=== PATIENT | male | born 1945 | race Caucasian/White ===

== ENCOUNTER 2018-01-26 04:39 | Inpatient (IN) | payer MEDICARE, OTHER ==
[2018-01-23 12:59] LABS: BASOPHILS # (AUTO) 0.08 x10^3/uL (0-0.1); BASOPHILS % (AUTO) 1 % (0-1); EOSINOPHILS # (AUTO) 0.36 x10^3/uL (0-0.4); EOSINOPHILS % (AUTO) 3 % (1-7); LYMPHOCYTES # (AUTO) 3.64 x10^3/uL (1-3.4); LYMPHOCYTES % (AUTO) 29 % (22-44); MD NO; MEAN CORPUSCULAR HEMOGLOBIN 30.6 pg (27.5-34.5); MEAN CORPUSCULAR HGB CONC 33.5 g/dL (33.2-36.2); MEAN CORPUSCULAR VOLUME 91.4 fL (81-97); MEAN PLATELET VOLUME 8.9 fL (7.4-10.4); MONOCYTES # (AUTO) 1.35 x10^3/uL (0.2-0.8); MONOCYTES % (AUTO) 11 % (2-9); NEUTROPHILS % (AUTO) 56 % (42-75); PLATELET COUNT 164 x10^3/uL (130-400); RED BLOOD COUNT 4.35 x10^6/uL (4.38-5.82); RED CELL DISTRIBUTION WIDTH 14.5 % (9.4-14.8)
[2018-01-23 13:04] LABS: INTERNATIONAL NORMALIZED RATIO 0.96 (0.93-1.1)
[2018-01-23 13:05] LABS: ALANINE AMINOTRANSFERASE 28 U/L (12-78); ALBUMIN 3.5 g/dL (3.4-5.0); ANION GAP 8 mmol/L (5-15); CALCIUM 9.1 mg/dL (8.5-10.1); CHLORIDE 107 mmol/L (98-107); CREATININE 1.61 mg/dL (0.7-1.3)
[2018-01-23 13:07] LABS: ALKALINE PHOSPHATASE 60 U/L (45-117); TOTAL PROTEIN 7.7 g/dL (6.4-8.2)
[2018-01-23 13:29] LABS: HEMOGLOBIN A1C 8.5 % (4.2-6.3)
[2018-01-23 13:40] LABS: MICROSCOPIC AUTO
[~2018-01-26] VITALS: Ht 177.8 cm; Wt 110.2 kg
[~2018-01-26 04:39] MED LIST: ASCO10004 PO; ASPI-496 PO; CYAN25009 PO; FINA5TAB4 PO; FURO20TA3 PO; GLIP10TA13 PO; LOSA25TA5 PO; LUTE6CAP3 PO; METH1TAB21 PO; METO50TA82 PO; RIVA20TA PO; SIMV20TA3 PO; SITA100T PO; TAMS-11 PO
[2018-01-26] MEDS ORDERED: ALBUMIN HUMAN 5% 500 ML IV PRN (05:00)
[2018-01-26] MEDS ORDERED: METOPROLOL TARTRATE 25 MG TABLET PO ONE (05:00)
[2018-01-26 05:25] VITALS: BP_SYST 144; BP_SYST 156; BP_DIAS 84; BP_DIAS 97
[2018-01-26] MEDS ORDERED: CHLORHEXIDINE 15 ML BOTTLE MM SCH (05:30)
[2018-01-26] MEDS ORDERED: INSULIN LISPRO 100 UNITS/ML, PEN SQ-INSULIN SCH (05:30)
[2018-01-26] MEDS: MUPIROCIN OINT 2%, 22GM TP SCH ×2 (05:34→21:42)
[2018-01-26] MEDS: SODIUM CHLORIDE FLUSH 10ML SYR IVF SCH ×3 (05:35→21:42)
[2018-01-26 06:30] VITALS: BP 123/82
[2018-01-26] MEDS ORDERED: PAPAVERINE 30 MG/ML, 2ML ONE (07:22)
[2018-01-26] MEDS ORDERED: HEPARIN 1,000 UNITS/ML, 10ML ONE (07:22)
[2018-01-26] MEDS ORDERED: MIDAZOLAM 10MG/2 ML ONE (07:28)
[2018-01-26] MEDS ORDERED: FENTANYL PF 250 MCG/5ML ONE ×4 (07:29)
[2018-01-26] MEDS ORDERED: PHENYLEPHRINE 10 MG in SODIUM CHLORIDE 0.9% 249 ML IV PRN ×2 (07:30→12:53)
[2018-01-26] MEDS ORDERED: EPINEPHRINE 2 MG in SODIUM CHLORIDE 0.9% 248 ML IV SCH (07:30)
[2018-01-26] MEDS ORDERED: POTASSIUM CHLORIDE 80 MEQ, SODIUM BICARBONATE 8.4% 10 MEQ, MAGNESIUM SULFATE 0.5 GM, LI... IV PRN (07:30)
[2018-01-26] MEDS ORDERED: REGULAR INSULIN 62.5 UNITS in SODIUM CHLORIDE 0.9% 249.375 ML IV PRN (07:30)
[2018-01-26] MEDS ORDERED: DEXMEDETOMIDINE 200 MCG in SODIUM CHLORIDE 0.9% 48 ML IV SCH (07:30)
[2018-01-26] MEDS ORDERED: CEFUROXIME 1.5 GM in SODIUM CHLORIDE 0.9% 50 ML IVPB PRN (07:30)
[2018-01-26] MEDS ORDERED: MANNITOL PMX 20% 500 ML IVPB PRN (07:30)
[2018-01-26] MEDS ORDERED: VANCOMYCIN 1,700 MG in SODIUM CHLORIDE 0.9% 250 ML IV PRN (07:30)
[2018-01-26] MEDS ORDERED: ROCURONIUM 10MG/ML,5ML ONE (08:02)
[2018-01-26] MEDS ORDERED: PROTAMINE SULFATE 10 MG/ML, 25ML ONE (08:02)
[2018-01-26] MEDS ORDERED: PROPOFOL 10 MG/ML, 20ML ONE (08:02)
[2018-01-26] MEDS: DOCUSATE 100 MG CAPSULE PO SCH ×2 (09:00→21:00)
[2018-01-26] MEDS ORDERED: DEXMEDETOMIDINE 200 MCG in SODIUM CHLORIDE 0.9% 48 ML IV PRN (12:53)
[2018-01-26] MEDS ORDERED: NITROGLYCERIN/D5W PMX 240 ML IV PRN (12:53)
[2018-01-26] MEDS ORDERED: DOBUTAMINE 250 MG in SODIUM CHLORIDE 0.9% 230 ML IV PRN (12:53)
[2018-01-26] MEDS ORDERED: SODIUM CHLORIDE 0.9% 1,000 ML IV PRN (12:53)
[2018-01-26] MEDS ORDERED: DEXTROSE 4 GM TAB.CHEW PO PRN (13:00)
[2018-01-26] MEDS: KSCALE TO 4.5 IV SCH ×2 (13:00→19:00)
[2018-01-26] MEDS ORDERED: LACTATED RINGERS 1,000 ML IV PRN (13:00)
[2018-01-26] MEDS ORDERED: GLUCAGON 1 MG IM PRN (13:00)
[2018-01-26] MEDS ORDERED: BISACODYL 5 MG EC TABLET PO PRN (13:00)
[2018-01-26] MEDS ORDERED: FENTANYL PF 100 MCG/2ML IVPush PRN (13:00)
[2018-01-26] MEDS ORDERED: SODIUM BICARB 8.4%, 50ML SYRINGE IV PRN (13:00)
[2018-01-26] MEDS ORDERED: DEXTROSE 50%, 50ML SYRINGE IVPush PRN (13:00)
[2018-01-26] MEDS ORDERED: ONDANSETRON 2MG/ML, 2ML IVPush PRN (13:00)
[2018-01-26] MEDS ORDERED: ACETAMINOPHEN 650 MG SUPP PR PRN (13:00)
[2018-01-26] MEDS ORDERED: ACETAMINOPHEN 325 MG TABLET PO PRN (13:00)
[2018-01-26] MEDS ORDERED: EPINEPHRINE 2 MG in SODIUM CHLORIDE 0.9% 248 ML IV PRN ×2 (13:00→14:30)
[2018-01-26] MEDS ORDERED: INSULIN REGULAR 100 UNITS/ML, 3ML VIAL IVPush PRN (13:00)
[2018-01-26] MEDS ORDERED: PROCHLORPERAZINE 5 MG/ML, 2ML IVPush PRN (13:00)
[2018-01-26] MEDS ORDERED: BISACODYL 10 MG SUPP PR PRN (13:00)
[2018-01-26] MEDS: CHLORHEXIDINE 15 ML BOTTLE MM SCH (13:00)
[2018-01-26] MEDS ORDERED: LIDOCAINE 2% 100MG/5ML SYRINGE ONE (13:19)
[2018-01-26] MEDS ORDERED: HEPARIN 1,000 UNITS/ML, 30ML ONE (13:19)
[2018-01-26] MEDS ORDERED: ALBUMIN HUMAN 25% 50 ML ONE (13:19)
[2018-01-26] MEDS ORDERED: SODIUM BICARBONATE 1 MEQ/ML, 50ML VIAL ONE (13:20)
[2018-01-26] MEDS ORDERED: SODIUM BICARB 8.4%, 50ML SYRINGE ONE (13:20)
[2018-01-26 13:47] LABS: GLUCOSE BY BLOOD GAS ANALYZER 193 mg/dL (70-110); HEMOGLOBIN BY BLOOD GAS ANALYZ 11.2 g/dL (14.0-18.0)
[2018-01-26 13:56] LABS: INTERNATIONAL NORMALIZED RATIO 1.2 (0.93-1.1); PROTHROMBIN TIME 12.4 Seconds (9.6-11.5)
[2018-01-26] MEDS: INSULIN LISPRO 100 UNITS/ML, PEN SQ-INSULIN SCH ×2 (14:08→21:00)
[2018-01-26] MEDS: MAGNESIUM SULFATE 1 GM in SODIUM CHLORIDE 0.9% 50 ML IVPB SCH (17:38)
[2018-01-26] MEDS ORDERED: CALCIUM CHLORIDE 13.6 MEQ in SODIUM CHLORIDE 0.9% 100 ML IV ONE (18:00)
[2018-01-26] MEDS: SODIUM CHLORIDE 0.9% 500 ML IV SCH ×3 (18:00→22:00)
[2018-01-26] MEDS ORDERED: MIDAZOLAM 1 MG/ML, 2ML ONE (18:03)
[2018-01-26] MEDS: MIDAZOLAM 1 MG/ML, 5ML IVPush PRN (18:20)
[2018-01-26] MEDS: EPINEPHRINE IV PRN (18:31)
[2018-01-26] MEDS: SODIUM CHLORIDE 0.9% IV PRN (18:31)
[2018-01-26] MEDS: DEXMEDETOMIDINE 400 MCG in SODIUM CHLORIDE 0.9% 46 ML IV PRN (19:33)
[2018-01-26] MEDS: MUPIROCIN OINT 2%, 22GM NAS SCH (21:00)
[2018-01-26] MEDS: REGULAR INSULIN 62.5 UNITS in SODIUM CHLORIDE 0.9% 249.375 ML IV PRN (21:46)
[2018-01-26] MEDS ORDERED: AMIODARONE 150 MG in DEXTROSE 5% 100 ML IV ONE (23:00)
[2018-01-26] MEDS ORDERED: FILTER 0.22 MICRON IV ONE (23:00)
[2018-01-27] MEDS: KSCALE TO 4.5 IV SCH ×2 (01:00→09:57)
[2018-01-27] MEDS: CHLORHEXIDINE 15 ML BOTTLE MM SCH ×2 (01:00→12:54)
[2018-01-27] MEDS: VANCOMYCIN 1,600 MG in SODIUM CHLORIDE 0.9% 250 ML IVPB SCH ×2 (01:53→20:05)
[2018-01-27] MEDS: SODIUM CHLORIDE 0.9% 500 ML IV SCH ×5 (02:00→08:00)
[2018-01-27] MEDS: HYDROcodone/APAP 5/325 TABLET PO PRN (02:05)
[2018-01-27] MEDS: OXYcodone IR 5MG TABLET PO PRN ×6 (05:11→22:16)
[2018-01-27 05:33] LABS: MEAN CORPUSCULAR HEMOGLOBIN 30.6 pg (27.5-34.5); MEAN CORPUSCULAR HGB CONC 33.4 g/dL (33.2-36.2); MEAN CORPUSCULAR VOLUME 91.8 fL (81-97); MEAN PLATELET VOLUME 8.7 fL (7.4-10.4); PLATELET COUNT 174 x10^3/uL (130-400); RED BLOOD COUNT 3.36 x10^6/uL (4.38-5.82); RED CELL DISTRIBUTION WIDTH 14.4 % (9.4-14.8)
[2018-01-27 05:48] LABS: ALBUMIN 2.9 g/dL (3.4-5.0); ANION GAP 12 mmol/L (5-15); CALCIUM 8.7 mg/dL (8.5-10.1); CHLORIDE 116 mmol/L (98-107); CREATININE 1.67 mg/dL (0.7-1.3)
[2018-01-27 06:00] LABS: MD YES
[2018-01-27 06:01] LABS: <PLATELET ESTIMATE> ADEQUATE; <PLT MORPHOLOGY> NORMAL PLT MORPH; <RBC MORPHOLOGY> NORMAL; BAND#(MANUAL) 2.39 x10^3/uL; BANDS%(MANUAL) 12 % (0-7); LYMPHS% (MANUAL) 3 % (22-44); MONOS#(MANUAL) 1.99 x10^3/uL (0.3-2.7); MONOS% (MANUAL) 10 % (2-9); SEG#(MANUAL) 14.93 x10^3/uL (1.8-6.8); SEGS% (MANUAL) 75 % (42-75)
[2018-01-27] MEDS: INSULIN LISPRO 100 UNITS/ML, PEN SQ-INSULIN SCH ×4 (07:00→20:55)
[2018-01-27] MEDS: morphine SULFATE 10 MG/ML, 1ML IVPush PRN ×4 (07:44→20:06)
[2018-01-27] MEDS: EPINEPHRINE IV PRN (07:52)
[2018-01-27] MEDS: SODIUM CHLORIDE 0.9% IV PRN (07:52)
[2018-01-27] MEDS: REGULAR INSULIN 62.5 UNITS in SODIUM CHLORIDE 0.9% 249.375 ML IV PRN ×2 (07:53→20:36)
[2018-01-27] MEDS ORDERED: FUROSEMIDE 40 MG/4 ML IV SCH (09:00)
[2018-01-27] MEDS: SODIUM CHLORIDE FLUSH 10ML SYR IVF SCH ×4 (09:00→21:18)
[2018-01-27] MEDS: MUPIROCIN OINT 2%, 22GM NAS SCH ×2 (09:00→20:55)
[2018-01-27] MEDS: DOCUSATE 100 MG CAPSULE PO SCH ×2 (09:00→20:56)
[2018-01-27] MEDS ORDERED: MIDAZOLAM 1 MG/ML, 2ML ONE ×4 (09:05→23:42)
[2018-01-27] MEDS: MIDAZOLAM 1 MG/ML, 5ML IVPush PRN ×4 (09:08→23:43)
[2018-01-27] MEDS: ASPIRIN 81 MG TABLET EC PO SCH (09:24)
[2018-01-27] MEDS: METOPROLOL TARTRATE 25 MG TABLET PO/NG SCH ×2 (09:24→21:17)
[2018-01-27] MEDS: MUPIROCIN OINT 2%, 22GM TP SCH ×2 (09:24→21:17)
[2018-01-27 09:32] LABS: MICROSCOPIC AUTO
[2018-01-27 09:33] LABS: CULTURE INDICATED? YES
[2018-01-27] MEDS: DEXMEDETOMIDINE 400 MCG in SODIUM CHLORIDE 0.9% 46 ML IV PRN ×2 (10:05→15:47)
[2018-01-27] MEDS: MAGNESIUM SULFATE 1 GM in SODIUM CHLORIDE 0.9% 50 ML IVPB SCH (12:53)
[2018-01-27] MEDS: PIPERACILLIN/TAZO/PMX 3.375GM 50 ML IV SCH ×2 (15:46→22:16)
[2018-01-27] MEDS: ALBUMIN HUMAN 25% 100 ML IV SCH (21:18)
[2018-01-27] MEDS: FUROSEMIDE 40 MG/4 ML IV SCH (23:21)
[2018-01-28] MEDS: CHLORHEXIDINE 15 ML BOTTLE MM SCH ×2 (01:00→12:22)
[2018-01-28] MEDS: OXYcodone IR 5MG TABLET PO PRN ×3 (01:34→22:51)
[2018-01-28] MEDS: DEXMEDETOMIDINE 400 MCG in SODIUM CHLORIDE 0.9% 46 ML IV PRN (01:41)
[2018-01-28] MEDS: PIPERACILLIN/TAZO/PMX 3.375GM 50 ML IV SCH ×4 (03:30→21:57)
[2018-01-28] MEDS ORDERED: AMIODARONE 150 MG in DEXTROSE 5% 100 ML IV ONE (03:30)
[2018-01-28] MEDS ORDERED: AMIODARONE 900 MG in DEXTROSE 5% 482 ML IV PRN (03:30)
[2018-01-28] MEDS ORDERED: FILTER 0.22 MICRON IV PRN (03:30)
[2018-01-28 04:46] LABS: MEAN CORPUSCULAR HEMOGLOBIN 31.4 pg (27.5-34.5); MEAN CORPUSCULAR HGB CONC 33.7 g/dL (33.2-36.2); MEAN CORPUSCULAR VOLUME 93.4 fL (81-97); MEAN PLATELET VOLUME 8.4 fL (7.4-10.4); PLATELET COUNT 120 x10^3/uL (130-400); RED BLOOD COUNT 3.05 x10^6/uL (4.38-5.82); RED CELL DISTRIBUTION WIDTH 14.8 % (9.4-14.8)
[2018-01-28 04:56] LABS: ANION GAP 7 mmol/L (5-15); CALCIUM 8.8 mg/dL (8.5-10.1); CHLORIDE 115 mmol/L (98-107)
[2018-01-28 04:57] LABS: CREATININE 1.65 mg/dL (0.7-1.3)
[2018-01-28 05:40] LABS: BASOPHILS # (AUTO) 0.17 x10^3/uL (0-0.1); BASOPHILS % (AUTO) 1 % (0-1); EOSINOPHILS # (AUTO) 0.02 x10^3/uL (0-0.4); EOSINOPHILS % (AUTO) 0 % (1-7); LYMPHOCYTES # (AUTO) 1.06 x10^3/uL (1-3.4); LYMPHOCYTES % (AUTO) 6 % (22-44); MD SCAN; MONOCYTES # (AUTO) 1.57 x10^3/uL (0.2-0.8); MONOCYTES % (AUTO) 9 % (2-9); NEUTROPHILS # (AUTO) 13.89 x10^3/uL (1.8-6.8); NEUTROPHILS % (AUTO) 83 % (42-75)
[2018-01-28] MEDS: INSULIN LISPRO 100 UNITS/ML, PEN SQ-INSULIN SCH ×4 (07:00→23:49)
[2018-01-28] MEDS: ALBUMIN HUMAN 25% 100 ML IV SCH ×2 (08:31→21:00)
[2018-01-28] MEDS: ENOXAPARIN 40 MG/0.4 ML SQ SCH (09:00)
[2018-01-28] MEDS ORDERED: FAMOTIDINE 20 MG/2 ML IVPush SCH (09:00)
[2018-01-28] MEDS: MUPIROCIN OINT 2%, 22GM NAS SCH ×2 (09:00→21:00)
[2018-01-28] MEDS: SODIUM CHLORIDE FLUSH 10ML SYR IVF SCH ×4 (09:00→21:09)
[2018-01-28] MEDS: FAMOTIDINE 20 MG/2 ML IVPush SCH (09:00)
[2018-01-28] MEDS: FUROSEMIDE 40 MG/4 ML IV SCH ×2 (09:54→22:50)
[2018-01-28] MEDS: POTASSIUM CHLORIDE 10 MEQ TABLET.ER PO SCH (09:55)
[2018-01-28] MEDS: DOCUSATE 100 MG CAPSULE PO SCH ×2 (09:55→21:08)
[2018-01-28] MEDS: ASPIRIN 81 MG TABLET EC PO SCH (09:55)
[2018-01-28] MEDS: METOPROLOL TARTRATE 25 MG TABLET PO/NG SCH ×2 (09:55→21:07)
[2018-01-28] MEDS: MUPIROCIN OINT 2%, 22GM TP SCH ×2 (09:56→21:09)
[2018-01-28] MEDS: HYDROcodone/APAP 5/325 TABLET PO PRN ×2 (10:11→18:48)
[2018-01-28] MEDS: REGULAR INSULIN 62.5 UNITS in SODIUM CHLORIDE 0.9% 249.375 ML IV PRN (10:53)
[2018-01-28] MEDS: MAGNESIUM SULFATE 1 GM in SODIUM CHLORIDE 0.9% 50 ML IVPB SCH (13:26)
[2018-01-29] MEDS: CHLORHEXIDINE 15 ML BOTTLE MM SCH ×2 (01:28→12:52)
[2018-01-29] MEDS: INSULIN LISPRO 100 UNITS/ML, PEN SQ-INSULIN SCH ×5 (03:28→20:39)
[2018-01-29] MEDS: PIPERACILLIN/TAZO/PMX 3.375GM 50 ML IV SCH ×4 (03:29→22:00)
[2018-01-29] MEDS: OXYcodone IR 5MG TABLET PO PRN (05:01)
[2018-01-29 06:32] LABS: ANION GAP 8 mmol/L (5-15); CALCIUM 8.9 mg/dL (8.5-10.1); CHLORIDE 109 mmol/L (98-107); CREATININE 1.71 mg/dL (0.7-1.3)
[2018-01-29] MEDS: ALBUMIN HUMAN 25% 100 ML IV SCH ×2 (07:32→20:37)
[2018-01-29] MEDS: MUPIROCIN OINT 2%, 22GM NAS SCH ×2 (09:00→20:37)
[2018-01-29] MEDS: ENOXAPARIN 40 MG/0.4 ML SQ SCH (09:00)
[2018-01-29] MEDS: SODIUM CHLORIDE FLUSH 10ML SYR IVF SCH ×4 (09:00→20:37)
[2018-01-29] MEDS: DOCUSATE 100 MG CAPSULE PO SCH ×2 (09:49→20:38)
[2018-01-29] MEDS: POTASSIUM CHLORIDE 10 MEQ TABLET.ER PO SCH (09:49)
[2018-01-29] MEDS: FUROSEMIDE 40 MG/4 ML IV SCH ×2 (09:50→20:37)
[2018-01-29] MEDS: FAMOTIDINE 20 MG/2 ML IVPush SCH (09:50)
[2018-01-29] MEDS: ASPIRIN 81 MG TABLET EC PO SCH (09:50)
[2018-01-29] MEDS: METOPROLOL TARTRATE 25 MG TABLET PO/NG SCH ×2 (09:50→20:38)
[2018-01-29] MEDS: MUPIROCIN OINT 2%, 22GM TP SCH ×2 (09:51→20:37)
[2018-01-29] MEDS: HYDROcodone/APAP 5/325 TABLET PO PRN ×2 (09:52→17:49)
[2018-01-30] MEDS: HYDROcodone/APAP 5/325 TABLET PO PRN ×4 (00:07→14:10)
[2018-01-30] MEDS: CHLORHEXIDINE 15 ML BOTTLE MM SCH ×2 (00:11→13:58)
[2018-01-30] MEDS: PIPERACILLIN/TAZO/PMX 3.375GM 50 ML IV SCH ×3 (04:16→22:32)
[2018-01-30 05:55] LABS: CHLORIDE 105 mmol/L (98-107)
[2018-01-30 06:06] LABS: ANION GAP 11 mmol/L (5-15); CALCIUM 9.5 mg/dL (8.5-10.1); CREATININE 1.67 mg/dL (0.7-1.3)
[2018-01-30] MEDS: INSULIN LISPRO 100 UNITS/ML, PEN SQ-INSULIN SCH ×4 (07:00→22:43)
[2018-01-30] MEDS ORDERED: MAGNESIUM HYDROXIDE 8%, 30ML UDC PO PRN (08:30)
[2018-01-30] MEDS: DOCUSATE 100 MG CAPSULE PO SCH ×2 (08:57→22:36)
[2018-01-30] MEDS: TAMSULOSIN 0.4 MG CAP.ER.24H PO SCH (08:57)
[2018-01-30] MEDS: FUROSEMIDE 40 MG/4 ML IV SCH ×2 (08:57→22:36)
[2018-01-30] MEDS: FAMOTIDINE 20 MG/2 ML IVPush SCH (08:57)
[2018-01-30] MEDS: ASPIRIN 81 MG TABLET EC PO SCH (08:57)
[2018-01-30] MEDS: FINASTERIDE 5 MG TABLET PO SCH (08:58)
[2018-01-30] MEDS: POTASSIUM CHLORIDE 10 MEQ TABLET.ER PO SCH (08:58)
[2018-01-30] MEDS: METOPROLOL TARTRATE 25 MG TABLET PO/NG SCH ×2 (08:59→22:36)
[2018-01-30] MEDS: ENOXAPARIN 40 MG/0.4 ML SQ SCH (09:05)
[2018-01-30] MEDS: ALBUMIN HUMAN 25% 100 ML IV SCH ×2 (10:59→23:05)
[2018-01-30 11:16] VITALS: BP 145/77
[2018-01-30 13:28] LABS: INTERNATIONAL NORMALIZED RATIO 1.03 (0.93-1.1); PROTHROMBIN TIME 10.7 Seconds (9.6-11.5)
[2018-01-30] MEDS: MUPIROCIN OINT 2%, 22GM NAS SCH ×2 (13:41→22:37)
[2018-01-30 14:07] VITALS: BP 145/77
[2018-01-30 14:13] VITALS: BP 127/75
[2018-01-30] MEDS: OXYcodone IR 5MG TABLET PO PRN ×2 (17:35→22:44)
[2018-01-30] MEDS ORDERED: WARFARIN 5 MG TABLET PO-COUM ONE (18:00)
[2018-01-30] MEDS ORDERED: LIDOCAINE 1%, 20ML ONE (18:33)
[2018-01-30 19:32] VITALS: BP 119/70
[2018-01-30] MEDS: SODIUM CHLORIDE FLUSH 10ML SYR IVF SCH (22:37)
[2018-01-31 01:57] VITALS: BP 109/73
[2018-01-31] MEDS: CHLORHEXIDINE 15 ML BOTTLE MM SCH (03:33)
[2018-01-31] MEDS: OXYcodone IR 5MG TABLET PO PRN ×4 (03:36→17:36)
[2018-01-31] MEDS: PIPERACILLIN/TAZO/PMX 3.375GM 50 ML IV SCH ×4 (04:33→23:05)
[2018-01-31 05:09] LABS: MEAN CORPUSCULAR HEMOGLOBIN 31.1 pg (27.5-34.5); MEAN CORPUSCULAR VOLUME 91.7 fL (81-97); MEAN PLATELET VOLUME 8.2 fL (7.4-10.4); PLATELET COUNT 157 x10^3/uL (130-400); RED BLOOD COUNT 3.12 x10^6/uL (4.38-5.82)
[2018-01-31 05:13] LABS: INTERNATIONAL NORMALIZED RATIO 1.04 (0.93-1.1); PROTHROMBIN TIME 10.8 Seconds (9.6-11.5)
[2018-01-31 05:17] LABS: ANION GAP 10 mmol/L (5-15); CALCIUM 9.1 mg/dL (8.5-10.1); CHLORIDE 103 mmol/L (98-107); CREATININE 1.68 mg/dL (0.7-1.3)
[2018-01-31 05:33] LABS: MD YES
[2018-01-31 05:35] LABS: <PLATELET ESTIMATE> ADEQUATE; <PLT MORPHOLOGY> NORMAL PLT MORPH; <RBC MORPHOLOGY> NORMAL; BAND#(MANUAL) 0.38 x10^3/uL; BANDS%(MANUAL) 3 % (0-7); EOS#(MANUAL) 0.38 x10^3/uL (0.0-0.4); EOS% (MANUAL) 3 % (1-7); LYMPHS% (MANUAL) 24 % (22-44); MONOS#(MANUAL) 0.63 x10^3/uL (0.3-2.7); MONOS% (MANUAL) 5 % (2-9); SEG#(MANUAL) 8.13 x10^3/uL (1.8-6.8); SEGS% (MANUAL) 65 % (42-75)
[2018-01-31 07:14] VITALS: BP 128/58
[2018-01-31] MEDS: FINASTERIDE 5 MG TABLET PO SCH (09:00)
[2018-01-31] MEDS: MUPIROCIN OINT 2%, 22GM NAS SCH (09:59)
[2018-01-31] MEDS: DOCUSATE 100 MG CAPSULE PO SCH ×2 (10:00→20:44)
[2018-01-31] MEDS: INSULIN LISPRO 100 UNITS/ML, PEN SQ-INSULIN SCH ×4 (10:00→20:55)
[2018-01-31] MEDS: POTASSIUM CHLORIDE 10 MEQ TABLET.ER PO SCH (10:00)
[2018-01-31] MEDS: TAMSULOSIN 0.4 MG CAP.ER.24H PO SCH (10:01)
[2018-01-31] MEDS: METOPROLOL TARTRATE 25 MG TABLET PO/NG SCH ×2 (10:02→20:54)
[2018-01-31] MEDS: FUROSEMIDE 40 MG/4 ML IV SCH ×2 (10:03→20:44)
[2018-01-31] MEDS: FAMOTIDINE 20 MG/2 ML IVPush SCH (10:04)
[2018-01-31] MEDS: ENOXAPARIN 40 MG/0.4 ML SQ SCH (10:05)
[2018-01-31] MEDS: ASPIRIN 81 MG TABLET EC PO SCH (10:05)
[2018-01-31] MEDS: SODIUM CHLORIDE FLUSH 10ML SYR IVF SCH ×2 (10:07→20:44)
[2018-01-31 12:24] VITALS: BP 112/72
[2018-01-31] MEDS: ALBUMIN HUMAN 25% 100 ML IV SCH ×2 (13:04→23:13)
[2018-01-31] MEDS ORDERED: WARFARIN 5 MG TABLET PO-COUM SCH (18:00)
[2018-01-31 19:35] VITALS: BP 134/57
[2018-01-31] MEDS: HYDROcodone/APAP 5/325 TABLET PO PRN (23:05)
[2018-02-01 03:22] VITALS: BP 114/71
[2018-02-01] MEDS: PIPERACILLIN/TAZO/PMX 3.375GM 50 ML IV SCH ×4 (04:48→23:22)
[2018-02-01] MEDS: HYDROcodone/APAP 5/325 TABLET PO PRN ×2 (05:42→17:54)
[2018-02-01 06:52] VITALS: BP 112/72
[2018-02-01 07:13] LABS: INTERNATIONAL NORMALIZED RATIO 1.08 (0.93-1.1); PROTHROMBIN TIME 11.2 Seconds (9.6-11.5)
[2018-02-01 07:15] LABS: ANION GAP 12 mmol/L (5-15); CALCIUM 9.3 mg/dL (8.5-10.1); CHLORIDE 101 mmol/L (98-107)
[2018-02-01] MEDS: FINASTERIDE 5 MG TABLET PO SCH (09:00)
[2018-02-01] MEDS: DOCUSATE 100 MG CAPSULE PO SCH ×2 (09:24→20:05)
[2018-02-01] MEDS: ASPIRIN 81 MG TABLET EC PO SCH (09:24)
[2018-02-01] MEDS: METOPROLOL TARTRATE 25 MG TABLET PO/NG SCH ×2 (09:25→20:05)
[2018-02-01] MEDS: FAMOTIDINE 20 MG TABLET PO SCH (09:25)
[2018-02-01] MEDS: TAMSULOSIN 0.4 MG CAP.ER.24H PO SCH (09:25)
[2018-02-01] MEDS: POTASSIUM CHLORIDE 10 MEQ TABLET.ER PO SCH (09:25)
[2018-02-01] MEDS: ENOXAPARIN 40 MG/0.4 ML SQ SCH (09:25)
[2018-02-01] MEDS: INSULIN LISPRO 100 UNITS/ML, PEN SQ-INSULIN SCH ×4 (09:25→20:04)
[2018-02-01] MEDS: FUROSEMIDE 40 MG/4 ML IV SCH (09:26)
[2018-02-01] MEDS: SODIUM CHLORIDE FLUSH 10ML SYR IVF SCH ×2 (09:26→20:04)
[2018-02-01] MEDS: ALBUMIN HUMAN 25% 100 ML IV SCH (11:26)
[2018-02-01] MEDS: OXYcodone IR 5MG TABLET PO PRN (12:46)
[2018-02-01 13:16] VITALS: BP 124/74
[2018-02-01] MEDS ORDERED: WARFARIN 7.5 MG TABLET PO-COUM SCH (18:00)
[2018-02-01 18:53] VITALS: BP 132/84
[2018-02-02 01:46] VITALS: BP 118/70
[2018-02-02] MEDS: OXYcodone IR 5MG TABLET PO PRN ×3 (03:30→21:20)
[2018-02-02 05:14] LABS: BASOPHILS # (AUTO) 0.12 x10^3/uL (0-0.1); BASOPHILS % (AUTO) 1 % (0-1); EOSINOPHILS # (AUTO) 0.43 x10^3/uL (0-0.4); EOSINOPHILS % (AUTO) 4 % (1-7); LYMPHOCYTES # (AUTO) 2.26 x10^3/uL (1-3.4); LYMPHOCYTES % (AUTO) 20 % (22-44); MD NO; MEAN CORPUSCULAR HGB CONC 33.4 g/dL (33.2-36.2); MEAN CORPUSCULAR VOLUME 92.7 fL (81-97); MEAN PLATELET VOLUME 8.3 fL (7.4-10.4); MONOCYTES # (AUTO) 1.28 x10^3/uL (0.2-0.8); MONOCYTES % (AUTO) 12 % (2-9); NEUTROPHILS # (AUTO) 7.12 x10^3/uL (1.8-6.8); NEUTROPHILS % (AUTO) 64 % (42-75); PLATELET COUNT 167 x10^3/uL (130-400); RED BLOOD COUNT 3.03 x10^6/uL (4.38-5.82)
[2018-02-02 05:17] LABS: INTERNATIONAL NORMALIZED RATIO 1.23 (0.93-1.1); PROTHROMBIN TIME 12.7 Seconds (9.6-11.5)
[2018-02-02] MEDS: PIPERACILLIN/TAZO/PMX 3.375GM 50 ML IV SCH ×4 (05:18→23:02)
[2018-02-02 05:20] LABS: CALCIUM 9.2 mg/dL (8.5-10.1); CHLORIDE 101 mmol/L (98-107)
[2018-02-02 05:24] LABS: ANION GAP 9 mmol/L (5-15); CREATININE 1.85 mg/dL (0.7-1.3)
[2018-02-02 06:57] VITALS: BP 104/66
[2018-02-02] MEDS ORDERED: POTASSIUM CHLORIDE 20 MEQ TAB.ER.PRT PO ONE (08:30)
[2018-02-02] MEDS ORDERED: ALBUMIN HUMAN 25% 100 ML IV SCH (09:00)
[2018-02-02] MEDS: INSULIN LISPRO 100 UNITS/ML, PEN SQ-INSULIN SCH ×4 (09:06→19:57)
[2018-02-02] MEDS: ENOXAPARIN 40 MG/0.4 ML SQ SCH (09:06)
[2018-02-02] MEDS: ASPIRIN 81 MG TABLET EC PO SCH (09:07)
[2018-02-02] MEDS: FAMOTIDINE 20 MG TABLET PO SCH (09:07)
[2018-02-02] MEDS: FUROSEMIDE 40 MG/4 ML IV SCH (09:07)
[2018-02-02] MEDS: TAMSULOSIN 0.4 MG CAP.ER.24H PO SCH (09:07)
[2018-02-02] MEDS: FINASTERIDE 5 MG TABLET PO SCH (09:07)
[2018-02-02] MEDS: DOCUSATE 100 MG CAPSULE PO SCH ×2 (09:07→19:57)
[2018-02-02] MEDS: METOPROLOL TARTRATE 25 MG TABLET PO/NG SCH ×2 (09:07→19:57)
[2018-02-02] MEDS: SODIUM CHLORIDE FLUSH 10ML SYR IVF SCH ×2 (09:08→19:51)
[2018-02-02] MEDS: POTASSIUM CHLORIDE 10 MEQ TABLET.ER PO SCH (10:47)
[2018-02-02 14:31] VITALS: BP 122/72
[2018-02-02] MEDS ORDERED: WARFARIN 10 MG TABLET PO-COUM ONE (18:00)
[2018-02-02 19:21] VITALS: BP 136/86
[2018-02-02 19:47] VITALS: BP 123/76
[2018-02-03 00:42] VITALS: BP 118/74
[2018-02-03] MEDS: PIPERACILLIN/TAZO/PMX 3.375GM 50 ML IV SCH ×3 (04:41→16:39)
[2018-02-03 05:05] LABS: BASOPHILS # (AUTO) 0.05 x10^3/uL (0-0.1); BASOPHILS % (AUTO) 0 % (0-1); EOSINOPHILS # (AUTO) 0.47 x10^3/uL (0-0.4); EOSINOPHILS % (AUTO) 4 % (1-7); LYMPHOCYTES # (AUTO) 2.72 x10^3/uL (1-3.4); LYMPHOCYTES % (AUTO) 23 % (22-44); MD NO; MEAN CORPUSCULAR HEMOGLOBIN 30.6 pg (27.5-34.5); MEAN CORPUSCULAR HGB CONC 33.1 g/dL (33.2-36.2); MEAN CORPUSCULAR VOLUME 92.4 fL (81-97); MEAN PLATELET VOLUME 7.9 fL (7.4-10.4); MONOCYTES # (AUTO) 1.37 x10^3/uL (0.2-0.8); MONOCYTES % (AUTO) 11 % (2-9); NEUTROPHILS # (AUTO) 7.45 x10^3/uL (1.8-6.8); NEUTROPHILS % (AUTO) 62 % (42-75); PLATELET COUNT 208 x10^3/uL (130-400); RED BLOOD COUNT 3.22 x10^6/uL (4.38-5.82); RED CELL DISTRIBUTION WIDTH 13.9 % (9.4-14.8)
[2018-02-03 05:08] LABS: INTERNATIONAL NORMALIZED RATIO 1.89 (0.93-1.1); PROTHROMBIN TIME 19.4 Seconds (9.6-11.5)
[2018-02-03 05:16] LABS: CHLORIDE 106 mmol/L (98-107)
[2018-02-03 05:23] LABS: ANION GAP 9 mmol/L (5-15); CALCIUM 9.7 mg/dL (8.5-10.1); CREATININE 1.73 mg/dL (0.7-1.3)
[2018-02-03 06:50] VITALS: BP 107/65
[2018-02-03] MEDS: INSULIN LISPRO 100 UNITS/ML, PEN SQ-INSULIN SCH ×4 (08:58→21:04)
[2018-02-03] MEDS: METOPROLOL TARTRATE 25 MG TABLET PO/NG SCH ×2 (08:58→20:33)
[2018-02-03] MEDS: TAMSULOSIN 0.4 MG CAP.ER.24H PO SCH (08:58)
[2018-02-03] MEDS: FUROSEMIDE 40 MG/4 ML IV SCH (08:58)
[2018-02-03] MEDS: FAMOTIDINE 20 MG TABLET PO SCH (08:59)
[2018-02-03] MEDS: DOCUSATE 100 MG CAPSULE PO SCH ×2 (08:59→20:33)
[2018-02-03] MEDS: ASPIRIN 81 MG TABLET EC PO SCH (08:59)
[2018-02-03] MEDS: SODIUM CHLORIDE FLUSH 10ML SYR IVF SCH ×2 (08:59→20:33)
[2018-02-03] MEDS: FINASTERIDE 5 MG TABLET PO SCH (08:59)
[2018-02-03] MEDS: ENOXAPARIN 40 MG/0.4 ML SQ SCH (08:59)
[2018-02-03] MEDS: POTASSIUM CHLORIDE 10 MEQ TABLET.ER PO SCH (08:59)
[2018-02-03] MEDS: OXYcodone IR 5MG TABLET PO PRN ×3 (12:02→21:04)
[2018-02-03 13:13] VITALS: BP 113/70
[2018-02-03 14:42] LABS: MICROSCOPIC NOT IND
[2018-02-03 14:48] LABS: CULTURE INDICATED? NO
[2018-02-03] MEDS ORDERED: WARFARIN 7.5 MG TABLET PO-COUM ONE ×3 (18:00→18:30)
[2018-02-03 18:55] VITALS: BP 149/76
[2018-02-03] MEDS: SIMVASTATIN 20 MG TABLET PO SCH (20:32)
[2018-02-04] VITALS (10 sets, daily range): BP systolic 114–150; BP diastolic 65–100
[2018-02-04] MEDS: OXYcodone IR 5MG TABLET PO PRN ×4 (00:19→18:36)
[2018-02-04] MEDS: PIPERACILLIN/TAZO/PMX 3.375GM 50 ML IV SCH ×5 (00:19→23:08)
[2018-02-04 05:03] LABS: BASOPHILS # (AUTO) 0.03 x10^3/uL (0-0.1); BASOPHILS % (AUTO) 0 % (0-1); EOSINOPHILS # (AUTO) 0.38 x10^3/uL (0-0.4); EOSINOPHILS % (AUTO) 4 % (1-7); LYMPHOCYTES # (AUTO) 2.16 x10^3/uL (1-3.4); LYMPHOCYTES % (AUTO) 20 % (22-44); MD NO; MEAN CORPUSCULAR HEMOGLOBIN 30.5 pg (27.5-34.5); MEAN CORPUSCULAR HGB CONC 33.1 g/dL (33.2-36.2); MEAN CORPUSCULAR VOLUME 92.1 fL (81-97); MONOCYTES # (AUTO) 1.23 x10^3/uL (0.2-0.8); MONOCYTES % (AUTO) 11 % (2-9); NEUTROPHILS # (AUTO) 6.96 x10^3/uL (1.8-6.8); NEUTROPHILS % (AUTO) 65 % (42-75); PLATELET COUNT 212 x10^3/uL (130-400); RED BLOOD COUNT 2.95 x10^6/uL (4.38-5.82); RED CELL DISTRIBUTION WIDTH 14.4 % (9.4-14.8)
[2018-02-04 05:04] LABS: INTERNATIONAL NORMALIZED RATIO 3.04 (0.93-1.1); PROTHROMBIN TIME 30.9 Seconds (9.6-11.5)
[2018-02-04 05:09] LABS: ANION GAP 7 mmol/L (5-15); CALCIUM 9.4 mg/dL (8.5-10.1); CHLORIDE 106 mmol/L (98-107); CREATININE 1.72 mg/dL (0.7-1.3)
[2018-02-04] MEDS: INSULIN LISPRO 100 UNITS/ML, PEN SQ-INSULIN SCH ×4 (07:31→20:56)
[2018-02-04] MEDS: TAMSULOSIN 0.4 MG CAP.ER.24H PO SCH (08:14)
[2018-02-04] MEDS: DOCUSATE 100 MG CAPSULE PO SCH ×2 (08:14→20:57)
[2018-02-04] MEDS: FUROSEMIDE 40 MG/4 ML IV SCH (08:14)
[2018-02-04] MEDS: POTASSIUM CHLORIDE 10 MEQ TABLET.ER PO SCH (08:15)
[2018-02-04] MEDS: ASPIRIN 81 MG TABLET EC PO SCH (08:15)
[2018-02-04] MEDS: FAMOTIDINE 20 MG TABLET PO SCH (08:16)
[2018-02-04] MEDS: SODIUM CHLORIDE FLUSH 10ML SYR IVF SCH ×2 (08:16→20:55)
[2018-02-04] MEDS: METOPROLOL TARTRATE 25 MG TABLET PO/NG SCH ×2 (08:16→20:57)
[2018-02-04] MEDS: ENOXAPARIN 40 MG/0.4 ML SQ SCH (08:16)
[2018-02-04] MEDS: FINASTERIDE 5 MG TABLET PO SCH (08:21)
[2018-02-04] MEDS ORDERED: WARFARIN 2.5 MG TABLET PO-COUM ONE (18:00)
[2018-02-04] MEDS: SIMVASTATIN 20 MG TABLET PO SCH (20:57)
[2018-02-05] VITALS (7 sets, daily range): BP systolic 118–147; BP diastolic 65–83
[2018-02-05] MEDS ORDERED: ALBUMIN HUMAN 5% 500 ML IV PRN (05:00)
[2018-02-05] MEDS: PIPERACILLIN/TAZO/PMX 3.375GM 50 ML IV SCH ×3 (05:24→17:31)
[2018-02-05 05:40] LABS: BASOPHILS # (AUTO) 0.03 x10^3/uL (0-0.1); BASOPHILS % (AUTO) 0 % (0-1); EOSINOPHILS # (AUTO) 0.44 x10^3/uL (0-0.4); EOSINOPHILS % (AUTO) 4 % (1-7); LYMPHOCYTES # (AUTO) 2.44 x10^3/uL (1-3.4); LYMPHOCYTES % (AUTO) 21 % (22-44); MD NO; MEAN CORPUSCULAR HEMOGLOBIN 30.4 pg (27.5-34.5); MEAN CORPUSCULAR HGB CONC 33.2 g/dL (33.2-36.2); MEAN CORPUSCULAR VOLUME 91.6 fL (81-97); MEAN PLATELET VOLUME 8.1 fL (7.4-10.4); MONOCYTES # (AUTO) 1.26 x10^3/uL (0.2-0.8); MONOCYTES % (AUTO) 11 % (2-9); NEUTROPHILS # (AUTO) 7.48 x10^3/uL (1.8-6.8); NEUTROPHILS % (AUTO) 64 % (42-75); PLATELET COUNT 239 x10^3/uL (130-400); RED BLOOD COUNT 3.09 x10^6/uL (4.38-5.82); RED CELL DISTRIBUTION WIDTH 14.2 % (9.4-14.8)
[2018-02-05 05:41] LABS: INTERNATIONAL NORMALIZED RATIO 2.6 (0.93-1.1); PROTHROMBIN TIME 26.5 Seconds (9.6-11.5)
[2018-02-05 05:43] LABS: CHLORIDE 106 mmol/L (98-107)
[2018-02-05 05:48] LABS: ANION GAP 8 mmol/L (5-15); CALCIUM 9.4 mg/dL (8.5-10.1)
[2018-02-05] MEDS: INSULIN LISPRO 100 UNITS/ML, PEN SQ-INSULIN SCH ×4 (07:00→21:03)
[2018-02-05] MEDS: DOCUSATE 100 MG CAPSULE PO SCH ×2 (07:27→20:56)
[2018-02-05] MEDS: ASPIRIN 81 MG TABLET EC PO SCH ×2 (07:27→09:02)
[2018-02-05] MEDS: TAMSULOSIN 0.4 MG CAP.ER.24H PO SCH ×2 (07:27→09:02)
[2018-02-05] MEDS: FUROSEMIDE 40 MG/4 ML IV SCH (07:27)
[2018-02-05] MEDS: SODIUM CHLORIDE FLUSH 10ML SYR IVF SCH ×2 (07:27→20:55)
[2018-02-05] MEDS: POTASSIUM CHLORIDE 10 MEQ TABLET.ER PO SCH (07:28)
[2018-02-05] MEDS: METOPROLOL TARTRATE 25 MG TABLET PO/NG SCH ×3 (07:28→20:57)
[2018-02-05] MEDS: FAMOTIDINE 20 MG TABLET PO SCH ×2 (07:28→09:02)
[2018-02-05] MEDS: FINASTERIDE 5 MG TABLET PO SCH ×2 (07:28→09:02)
[2018-02-05] MEDS: ENOXAPARIN 40 MG/0.4 ML SQ SCH ×2 (07:28→09:02)
[2018-02-05] MEDS ORDERED: DEXMEDETOMIDINE 200 MCG in SODIUM CHLORIDE 0.9% 48 ML IV SCH (07:30)
[2018-02-05] MEDS ORDERED: PHENYLEPHRINE 10 MG in SODIUM CHLORIDE 0.9% 249 ML IV PRN (07:30)
[2018-02-05] MEDS ORDERED: EPINEPHRINE 2 MG in SODIUM CHLORIDE 0.9% 248 ML IV SCH (07:30)
[2018-02-05] MEDS ORDERED: REGULAR INSULIN 62.5 UNITS in SODIUM CHLORIDE 0.9% 249.375 ML IV PRN (07:30)
[2018-02-05] MEDS ORDERED: MANNITOL PMX 20% 500 ML IVPB PRN (07:30)
[2018-02-05] MEDS ORDERED: POTASSIUM CHLORIDE 80 MEQ, SODIUM BICARBONATE 8.4% 10 MEQ, MAGNESIUM SULFATE 0.5 GM, LI... IV PRN (07:30)
[2018-02-05] MEDS ORDERED: FENTANYL PF 250 MCG/5ML ONE (07:54)
[2018-02-05] MEDS ORDERED: VANCOMYCIN 1,700 MG in SODIUM CHLORIDE 0.9% 250 ML IVPB SCH (08:00)
[2018-02-05] MEDS: HYDROcodone/APAP 5/325 TABLET PO PRN (09:02)
[2018-02-05] MEDS: OXYcodone IR 5MG TABLET PO PRN ×2 (11:27→17:31)
[2018-02-05] MEDS ORDERED: WARFARIN 5 MG TABLET PO-COUM ONE (18:00)
[2018-02-05] MEDS: SIMVASTATIN 20 MG TABLET PO SCH (20:57)
[2018-02-06] MEDS: PIPERACILLIN/TAZO/PMX 3.375GM 50 ML IV SCH ×4 (00:25→18:04)
[2018-02-06 00:46] VITALS: BP 134/72
[2018-02-06] MEDS: OXYcodone IR 5MG TABLET PO PRN ×2 (05:12→20:34)
[2018-02-06 05:14] LABS: INTERNATIONAL NORMALIZED RATIO 2.14 (0.93-1.1); PROTHROMBIN TIME 21.9 Seconds (9.6-11.5)
[2018-02-06 05:20] LABS: ANION GAP 8 mmol/L (5-15); CALCIUM 9.4 mg/dL (8.5-10.1); CHLORIDE 107 mmol/L (98-107); CREATININE 1.96 mg/dL (0.7-1.3)
[2018-02-06 08:18] VITALS: BP 115/89
[2018-02-06] MEDS: FINASTERIDE 5 MG TABLET PO SCH (09:04)
[2018-02-06] MEDS: TAMSULOSIN 0.4 MG CAP.ER.24H PO SCH (09:04)
[2018-02-06] MEDS: ASPIRIN 81 MG TABLET EC PO SCH (09:04)
[2018-02-06] MEDS: SITAGLIPTIN 50MG TABLET PO SCH (09:04)
[2018-02-06] MEDS: INSULIN LISPRO 100 UNITS/ML, PEN SQ-INSULIN SCH ×4 (09:04→20:35)
[2018-02-06] MEDS: METOPROLOL TARTRATE 25 MG TABLET PO/NG SCH ×2 (09:05→20:34)
[2018-02-06] MEDS: ENOXAPARIN 40 MG/0.4 ML SQ SCH (09:05)
[2018-02-06] MEDS: FAMOTIDINE 20 MG TABLET PO SCH (09:10)
[2018-02-06] MEDS: SODIUM CHLORIDE FLUSH 10ML SYR IVF SCH ×2 (09:10→20:41)
[2018-02-06 09:16] LABS: BASOPHILS # (AUTO) 0.09 x10^3/uL (0-0.1); BASOPHILS % (AUTO) 1 % (0-1); EOSINOPHILS # (AUTO) 0.46 x10^3/uL (0-0.4); EOSINOPHILS % (AUTO) 3 % (1-7); LYMPHOCYTES % (AUTO) 22 % (22-44); MD NO; MEAN CORPUSCULAR HEMOGLOBIN 30.1 pg (27.5-34.5); MEAN CORPUSCULAR HGB CONC 32.8 g/dL (33.2-36.2); MEAN CORPUSCULAR VOLUME 91.9 fL (81-97); MEAN PLATELET VOLUME 8.8 fL (7.4-10.4); MONOCYTES # (AUTO) 1.11 x10^3/uL (0.2-0.8); MONOCYTES % (AUTO) 8 % (2-9); NEUTROPHILS % (AUTO) 66 % (42-75); PLATELET COUNT 275 x10^3/uL (130-400); RED BLOOD COUNT 3.22 x10^6/uL (4.38-5.82); RED CELL DISTRIBUTION WIDTH 14.1 % (9.4-14.8)
[2018-02-06] MEDS: HYDROcodone/APAP 5/325 TABLET PO PRN ×2 (09:48→17:04)
[2018-02-06 14:10] VITALS: BP 98/68
[2018-02-06 18:53] VITALS: BP 117/78
[2018-02-06] MEDS: DOCUSATE 100 MG CAPSULE PO SCH (20:34)
[2018-02-06] MEDS: SIMVASTATIN 20 MG TABLET PO SCH (20:36)
[2018-02-07] MEDS: PIPERACILLIN/TAZO/PMX 3.375GM 50 ML IV SCH ×4 (01:06→20:21)
[2018-02-07 01:56] VITALS: BP 104/65
[2018-02-07] MEDS: OXYcodone IR 5MG TABLET PO PRN (03:40)
[2018-02-07 05:13] LABS: INTERNATIONAL NORMALIZED RATIO 1.63 (0.93-1.1); PROTHROMBIN TIME 16.8 Seconds (9.6-11.5)
[2018-02-07 05:17] LABS: ANION GAP 7 mmol/L (5-15); BASOPHILS # (AUTO) 0.06 x10^3/uL (0-0.1); BASOPHILS % (AUTO) 1 % (0-1); CALCIUM 9.3 mg/dL (8.5-10.1); CHLORIDE 108 mmol/L (98-107); EOSINOPHILS # (AUTO) 0.39 x10^3/uL (0-0.4); EOSINOPHILS % (AUTO) 3 % (1-7); LYMPHOCYTES # (AUTO) 2.04 x10^3/uL (1-3.4); LYMPHOCYTES % (AUTO) 16 % (22-44); MD NO; MEAN CORPUSCULAR HEMOGLOBIN 30.4 pg (27.5-34.5); MEAN CORPUSCULAR HGB CONC 33.2 g/dL (33.2-36.2); MEAN CORPUSCULAR VOLUME 91.4 fL (81-97); MONOCYTES # (AUTO) 1.16 x10^3/uL (0.2-0.8); MONOCYTES % (AUTO) 9 % (2-9); NEUTROPHILS # (AUTO) 8.93 x10^3/uL (1.8-6.8); NEUTROPHILS % (AUTO) 71 % (42-75); PLATELET COUNT 246 x10^3/uL (130-400); RED BLOOD COUNT 3.17 x10^6/uL (4.38-5.82); RED CELL DISTRIBUTION WIDTH 14.7 % (9.4-14.8)
[2018-02-07 07:13] VITALS: BP 129/88
[2018-02-07] MEDS: TAMSULOSIN 0.4 MG CAP.ER.24H PO SCH (08:25)
[2018-02-07] MEDS: FAMOTIDINE 20 MG TABLET PO SCH (08:25)
[2018-02-07] MEDS: ASPIRIN 81 MG TABLET EC PO SCH (08:25)
[2018-02-07] MEDS: FINASTERIDE 5 MG TABLET PO SCH (08:25)
[2018-02-07] MEDS: SITAGLIPTIN 50MG TABLET PO SCH (08:25)
[2018-02-07] MEDS: METOPROLOL TARTRATE 25 MG TABLET PO/NG SCH ×2 (08:25→20:22)
[2018-02-07] MEDS: INSULIN LISPRO 100 UNITS/ML, PEN SQ-INSULIN SCH ×4 (08:26→20:27)
[2018-02-07] MEDS: SODIUM CHLORIDE FLUSH 10ML SYR IVF SCH ×2 (08:26→20:21)
[2018-02-07] MEDS: ENOXAPARIN 40 MG/0.4 ML SQ SCH (08:26)
[2018-02-07 10:58] VITALS: BP 96/60
[2018-02-07] MEDS: HYDROcodone/APAP 5/325 TABLET PO PRN ×3 (11:22→22:47)
[2018-02-07 13:30] VITALS: BP 112/74
[2018-02-07] MEDS ORDERED: WARFARIN 7.5 MG TABLET PO-COUM ONE (18:00)
[2018-02-07 20:19] VITALS: BP 123/78
[2018-02-07] MEDS: SIMVASTATIN 20 MG TABLET PO SCH (20:21)
[2018-02-07] MEDS: DOCUSATE 100 MG CAPSULE PO SCH (20:22)
[2018-02-08 00:59] VITALS: BP 115/80
[2018-02-08] MEDS: PIPERACILLIN/TAZO/PMX 3.375GM 50 ML IV SCH ×3 (02:13→21:02)
[2018-02-08 05:17] LABS: BASOPHILS # (AUTO) 0.06 x10^3/uL (0-0.1); BASOPHILS % (AUTO) 0 % (0-1); EOSINOPHILS # (AUTO) 0.38 x10^3/uL (0-0.4); EOSINOPHILS % (AUTO) 3 % (1-7); INTERNATIONAL NORMALIZED RATIO 1.48 (0.93-1.1); LYMPHOCYTES # (AUTO) 2.53 x10^3/uL (1-3.4); LYMPHOCYTES % (AUTO) 19 % (22-44); MD NO; MEAN CORPUSCULAR HEMOGLOBIN 30.6 pg (27.5-34.5); MEAN CORPUSCULAR HGB CONC 33.4 g/dL (33.2-36.2); MEAN CORPUSCULAR VOLUME 91.7 fL (81-97); MONOCYTES # (AUTO) 1.36 x10^3/uL (0.2-0.8); MONOCYTES % (AUTO) 10 % (2-9); NEUTROPHILS # (AUTO) 9.25 x10^3/uL (1.8-6.8); NEUTROPHILS % (AUTO) 68 % (42-75); PLATELET COUNT 286 x10^3/uL (130-400); PROTHROMBIN TIME 15.3 Seconds (9.6-11.5); RED BLOOD COUNT 3.39 x10^6/uL (4.38-5.82); RED CELL DISTRIBUTION WIDTH 14.3 % (9.4-14.8)
[2018-02-08 05:26] LABS: ANION GAP 8 mmol/L (5-15); CALCIUM 9.9 mg/dL (8.5-10.1); CHLORIDE 110 mmol/L (98-107)
[2018-02-08] MEDS: INSULIN LISPRO 100 UNITS/ML, PEN SQ-INSULIN SCH ×4 (08:42→21:06)
[2018-02-08] MEDS: TAMSULOSIN 0.4 MG CAP.ER.24H PO SCH (08:44)
[2018-02-08] MEDS: FAMOTIDINE 20 MG TABLET PO SCH (08:44)
[2018-02-08] MEDS: ENOXAPARIN 40 MG/0.4 ML SQ SCH (08:44)
[2018-02-08] MEDS: ASPIRIN 81 MG TABLET EC PO SCH (08:44)
[2018-02-08] MEDS: OXYcodone IR 5MG TABLET PO PRN (08:45)
[2018-02-08] MEDS: SITAGLIPTIN 50MG TABLET PO SCH (08:45)
[2018-02-08] MEDS: FINASTERIDE 5 MG TABLET PO SCH (08:46)
[2018-02-08] MEDS: METOPROLOL TARTRATE 25 MG TABLET PO/NG SCH ×2 (08:46→21:03)
[2018-02-08] MEDS: SODIUM CHLORIDE FLUSH 10ML SYR IVF SCH ×2 (08:54→21:04)
[2018-02-08 09:56] VITALS: BP 137/64
[2018-02-08] MEDS ORDERED: DOXYCYCLINE 100MG TABLET ONE (10:40)
[2018-02-08] MEDS: DOXYCYCLINE 100MG CAP PO SCH ×2 (10:47→21:02)
[2018-02-08] MEDS: HYDROcodone/APAP 5/325 TABLET PO PRN ×2 (12:03→18:47)
[2018-02-08 13:22] VITALS: BP 149/75
[2018-02-08] MEDS ORDERED: WARFARIN 7.5 MG TABLET PO-COUM ONE (18:00)
[2018-02-08 19:11] VITALS: BP 135/79
[2018-02-08] MEDS: DOCUSATE 100 MG CAPSULE PO SCH (21:02)
[2018-02-08] MEDS: SIMVASTATIN 20 MG TABLET PO SCH (21:03)
[2018-02-09] MEDS: PIPERACILLIN/TAZO/PMX 3.375GM 50 ML IV SCH ×4 (01:39→19:45)
[2018-02-09 02:00] VITALS: BP 144/92
[2018-02-09] MEDS: OXYcodone IR 5MG TABLET PO PRN ×3 (04:43→19:44)
[2018-02-09 05:28] LABS: BASOPHILS # (AUTO) 0.04 x10^3/uL (0-0.1); BASOPHILS % (AUTO) 0 % (0-1); EOSINOPHILS # (AUTO) 0.34 x10^3/uL (0-0.4); EOSINOPHILS % (AUTO) 3 % (1-7); LYMPHOCYTES # (AUTO) 2.53 x10^3/uL (1-3.4); LYMPHOCYTES % (AUTO) 19 % (22-44); MD NO; MEAN CORPUSCULAR HEMOGLOBIN 29.9 pg (27.5-34.5); MEAN CORPUSCULAR HGB CONC 32.6 g/dL (33.2-36.2); MEAN CORPUSCULAR VOLUME 91.7 fL (81-97); MEAN PLATELET VOLUME 7.8 fL (7.4-10.4); MONOCYTES # (AUTO) 1.24 x10^3/uL (0.2-0.8); MONOCYTES % (AUTO) 9 % (2-9); NEUTROPHILS # (AUTO) 9.53 x10^3/uL (1.8-6.8); NEUTROPHILS % (AUTO) 70 % (42-75); PLATELET COUNT 272 x10^3/uL (130-400); RED BLOOD COUNT 3.23 x10^6/uL (4.38-5.82); RED CELL DISTRIBUTION WIDTH 14.6 % (9.4-14.8)
[2018-02-09 05:37] LABS: CHLORIDE 107 mmol/L (98-107)
[2018-02-09 05:38] LABS: INTERNATIONAL NORMALIZED RATIO 2.19 (0.93-1.1); PROTHROMBIN TIME 22.4 Seconds (9.6-11.5)
[2018-02-09 05:52] LABS: ANION GAP 11 mmol/L (5-15); CALCIUM 9.4 mg/dL (8.5-10.1)
[2018-02-09 05:53] LABS: ALANINE AMINOTRANSFERASE 22 U/L (12-78); ALBUMIN 3.3 g/dL (3.4-5.0); ALKALINE PHOSPHATASE 98 U/L (45-117); CREATININE 1.91 mg/dL (0.7-1.3); TOTAL PROTEIN 7.6 g/dL (6.4-8.2)
[2018-02-09 06:24] LABS: HCT (SEDRATE) 31.1 % (39.2-51.8)
[2018-02-09 07:43] VITALS: BP 130/75
[2018-02-09] MEDS: INSULIN LISPRO 100 UNITS/ML, PEN SQ-INSULIN SCH ×4 (08:41→20:00)
[2018-02-09] MEDS: SODIUM CHLORIDE FLUSH 10ML SYR IVF SCH ×2 (08:41→20:00)
[2018-02-09] MEDS: ENOXAPARIN 40 MG/0.4 ML SQ SCH (08:41)
[2018-02-09] MEDS: FINASTERIDE 5 MG TABLET PO SCH (08:42)
[2018-02-09] MEDS: ASPIRIN 81 MG TABLET EC PO SCH (08:42)
[2018-02-09] MEDS: FAMOTIDINE 20 MG TABLET PO SCH (08:42)
[2018-02-09] MEDS: TAMSULOSIN 0.4 MG CAP.ER.24H PO SCH (08:42)
[2018-02-09] MEDS: DOXYCYCLINE 100MG CAP PO SCH ×2 (08:42→19:44)
[2018-02-09] MEDS: METOPROLOL TARTRATE 25 MG TABLET PO/NG SCH ×2 (08:42→19:45)
[2018-02-09] MEDS: SITAGLIPTIN 50MG TABLET PO SCH (08:54)
[2018-02-09 10:26] LABS: BASOPHILS # (AUTO) 0.14 x10^3/uL (0-0.1); BASOPHILS % (AUTO) 1 % (0-1); EOSINOPHILS # (AUTO) 0.34 x10^3/uL (0-0.4); EOSINOPHILS % (AUTO) 3 % (1-7); LYMPHOCYTES # (AUTO) 2.48 x10^3/uL (1-3.4); LYMPHOCYTES % (AUTO) 19 % (22-44); MD NO; MEAN CORPUSCULAR HEMOGLOBIN 29.5 pg (27.5-34.5); MEAN CORPUSCULAR HGB CONC 32.4 g/dL (33.2-36.2); MEAN CORPUSCULAR VOLUME 91.2 fL (81-97); MEAN PLATELET VOLUME 7.6 fL (7.4-10.4); MONOCYTES # (AUTO) 1.08 x10^3/uL (0.2-0.8); MONOCYTES % (AUTO) 8 % (2-9); NEUTROPHILS # (AUTO) 9.31 x10^3/uL (1.8-6.8); NEUTROPHILS % (AUTO) 70 % (42-75); PLATELET COUNT 287 x10^3/uL (130-400); RED BLOOD COUNT 3.39 x10^6/uL (4.38-5.82); RED CELL DISTRIBUTION WIDTH 14.5 % (9.4-14.8)
[2018-02-09 14:24] VITALS: BP 118/73
[2018-02-09] MEDS ORDERED: WARFARIN 5 MG TABLET PO-COUM ONE (18:00)
[2018-02-09 19:05] VITALS: BP 128/81
[2018-02-09] MEDS: SIMVASTATIN 20 MG TABLET PO SCH (19:44)
[2018-02-09] MEDS: DOCUSATE 100 MG CAPSULE PO SCH (19:44)
[2018-02-09 19:47] VITALS: BP 121/81
[2018-02-10] MEDS: PIPERACILLIN/TAZO/PMX 3.375GM 50 ML IV SCH ×2 (02:06→07:20)
[2018-02-10 02:30] VITALS: BP 125/85
[2018-02-10 05:00] LABS: BASOPHILS % (AUTO) 1 % (0-1); EOSINOPHILS # (AUTO) 0.36 x10^3/uL (0-0.4); EOSINOPHILS % (AUTO) 3 % (1-7); LYMPHOCYTES # (AUTO) 2.58 x10^3/uL (1-3.4); LYMPHOCYTES % (AUTO) 20 % (22-44); MD NO; MEAN CORPUSCULAR HEMOGLOBIN 29.9 pg (27.5-34.5); MEAN CORPUSCULAR HGB CONC 32.9 g/dL (33.2-36.2); MEAN CORPUSCULAR VOLUME 90.8 fL (81-97); MEAN PLATELET VOLUME 7.7 fL (7.4-10.4); MONOCYTES # (AUTO) 1.28 x10^3/uL (0.2-0.8); MONOCYTES % (AUTO) 10 % (2-9); NEUTROPHILS # (AUTO) 8.47 x10^3/uL (1.8-6.8); NEUTROPHILS % (AUTO) 66 % (42-75); PLATELET COUNT 288 x10^3/uL (130-400); RED BLOOD COUNT 3.33 x10^6/uL (4.38-5.82); RED CELL DISTRIBUTION WIDTH 14.7 % (9.4-14.8)
[2018-02-10 05:09] LABS: INTERNATIONAL NORMALIZED RATIO 3.5 (0.93-1.1); PROTHROMBIN TIME 35.5 Seconds (9.6-11.5)
[2018-02-10 05:12] LABS: ANION GAP 9 mmol/L (5-15); CALCIUM 9.2 mg/dL (8.5-10.1); CHLORIDE 110 mmol/L (98-107); CREATININE 1.82 mg/dL (0.7-1.3)
[2018-02-10] MEDS: OXYcodone IR 5MG TABLET PO PRN ×2 (05:22→11:48)
[2018-02-10] MEDS: INSULIN LISPRO 100 UNITS/ML, PEN SQ-INSULIN SCH ×2 (07:00→11:00)
[2018-02-10] MEDS: ENOXAPARIN 40 MG/0.4 ML SQ SCH (07:03)
[2018-02-10] MEDS: SODIUM CHLORIDE FLUSH 10ML SYR IVF SCH (07:20)
[2018-02-10] MEDS: ASPIRIN 81 MG TABLET EC PO SCH (07:23)
[2018-02-10] MEDS: SITAGLIPTIN 50MG TABLET PO SCH (07:23)
[2018-02-10] MEDS: DOXYCYCLINE 100MG CAP PO SCH (07:23)
[2018-02-10] MEDS: FAMOTIDINE 20 MG TABLET PO SCH (07:24)
[2018-02-10] MEDS: TAMSULOSIN 0.4 MG CAP.ER.24H PO SCH (07:24)
[2018-02-10] MEDS: METOPROLOL TARTRATE 25 MG TABLET PO/NG SCH (07:27)
[2018-02-10] MEDS: FINASTERIDE 5 MG TABLET PO SCH (07:27)
[2018-02-10] MEDS ORDERED: Warfarin Low Dose Protocol PO (07:29)
[2018-02-10] MEDS ORDERED: OXYC5TAB3 PO (07:31)
[2018-02-10 07:53] VITALS: BP 125/83
[2018-02-10] MEDS ORDERED: HOLD COUMADIN MC PRN (08:00)
== END 2018-02-10 12:36 | disposition home health service (06) | DRG 235 ==
LOC: 5SO 04:39 → CSU 07:50 → 5SO 01-30 10:44 → DCLOUNGE 02-10 12:02
PROVIDERS: ADMIT Thoracic Surgery (Cardiothoracic Vascular Surgery); ATTEND Thoracic Surgery (Cardiothoracic Vascular Surgery)
PROC: 02100Z9 Bypass Coronary Artery, One Artery from Left Internal Mammary, Open Approach (ICD-10-PCS; 2018-01-26)
PROC: 06BP4ZZ Excision of Right Saphenous Vein, Percutaneous Endoscopic Approach (ICD-10-PCS; 2018-01-26)
PROC: 0T7B8ZZ Dilation of Bladder, Via Natural or Artificial Opening Endoscopic (ICD-10-PCS; 2018-01-26)
PROC: 30233R1 Transfusion of Nonautologous Platelets into Peripheral Vein, Percutaneous Approach (ICD-10-PCS; 2018-01-26)
PROC: 5A1221Z Performance of Cardiac Output, Continuous (ICD-10-PCS; 2018-01-26)
PROC: 5A1945Z Respiratory Ventilation, 24-96 Consecutive Hours (ICD-10-PCS; 2018-01-26)
PROC: 0BH17EZ Insertion of Endotracheal Airway into Trachea, Via Natural or Artificial Opening (ICD-10-PCS; 2018-01-26)
PROC: 021009W Bypass Coronary Artery, One Artery from Aorta with Autologous Venous Tissue, Open Approach (ICD-10-PCS; principal; 2018-01-26 08:00)
PROC: 0T9B70Z Drainage of Bladder with Drainage Device, Via Natural or Artificial Opening (ICD-10-PCS; 2018-01-27)
PROC: 0WJB3ZZ Inspection of Left Pleural Cavity, Percutaneous Approach (ICD-10-PCS; 2018-01-30)
PROC: 0W9B3ZZ Drainage of Left Pleural Cavity, Percutaneous Approach (ICD-10-PCS; 2018-01-30)
PROC: 0T9B70Z Drainage of Bladder with Drainage Device, Via Natural or Artificial Opening (ICD-10-PCS; 2018-02-03)
PROC: 30233L1 Transfusion of Nonautologous Fresh Plasma into Peripheral Vein, Percutaneous Approach (ICD-10-PCS; 2018-02-04)
PROC: 30233K1 Transfusion of Nonautologous Frozen Plasma into Peripheral Vein, Percutaneous Approach (ICD-10-PCS; 2018-02-04)
DX: I25.119 Atherosclerotic heart disease of native coronary artery with unspecified angina pectoris (principal); I50.43 Acute on chronic combined systolic (congestive) and diastolic (congestive) heart failure; J96.01 Acute respiratory failure with hypoxia; I48.0 Paroxysmal atrial fibrillation; Z99.11 Dependence on respirator [ventilator] status; J90 Pleural effusion, not elsewhere classified; E11.22 Type 2 diabetes mellitus with diabetic chronic kidney disease; I48.92 Unspecified atrial flutter; I13.0 Hypertensive heart and chronic kidney disease with heart failure and stage 1 through stage 4 chronic kidney disease, or unspecified chronic kidney disease; N39.0 Urinary tract infection, site not specified; T81.30XA Disruption of wound, unspecified, initial encounter; J98.11 Atelectasis; I80.9 Phlebitis and thrombophlebitis of unspecified site; D63.8 Anemia in other chronic diseases classified elsewhere; E78.00 Pure hypercholesterolemia, unspecified; E78.1 Pure hyperglyceridemia; I49.3 Ventricular premature depolarization; N18.3 Chronic kidney disease, stage 3 (moderate); N35.9 Urethral stricture, unspecified; N36.8 Other specified disorders of urethra; Z79.01 Long term (current) use of anticoagulants; Z87.891 Personal history of nicotine dependence; Z96.649 Presence of unspecified artificial hip joint
CPT/HCPCS: 32555; 36415; 36600; 71045; 71046; 71250; 80048; 80053; 81001; 81003; 82040; 82330; 82800; 82803; 82810; 82947; 82962; 83036; 83735; 84132; 84295; 85014; 85018; 85025; 85049; 85347; 85610; 85651; 85730; 86140; 86850; 86900; 86923; 87040; 87070; 87077; 87081; 87086; 87186; 87205; 88304; 88311; 93005; 93312; 93321; 93325; 94002; 94003; 94150; J0697; J1644; J1650; J1815; J1940; J2250; J2405; J2543; J2704; J2720; J3010; J3370; J3475; J3480; J3490; P9045; P9047; C1751; C1760; C1769; J0171; J0282; J2270; J2370; J2440; J7040; J7050; P9017; P9035; S0028

== ENCOUNTER 2021-07-18 09:55 | Outpatient (CLI) | payer MEDICARE, OTHER ==
[2021-07-16 11:16] LABS: BASOPHILS % (AUTO) 1 % (0-1); EOSINOPHILS % (AUTO) 2 % (1-7); LYMPHOCYTES % (AUTO) 32 % (22-44); MEAN CORPUSCULAR HEMOGLOBIN 30.1 pg (27.5-34.5); MEAN CORPUSCULAR HGB CONC 34.3 g/dL (33.2-36.2); MEAN PLATELET VOLUME 9.4 fL (7.4-10.4); MONOCYTES % (AUTO) 13 % (2-9); NEUTROPHILS % (AUTO) 53 % (42-75); PLATELET COUNT 115 x10^3/uL (130-400); RED CELL DISTRIBUTION WIDTH 14.5 % (9.4-14.8)
[2021-07-16 11:29] LABS: ALBUMIN 3.5 g/dL (3.4-5.0); ANION GAP 7 mmol/L (5-15); CALCIUM 10.5 mg/dL (8.5-10.1); CHLORIDE 106 mmol/L (98-107)
[2021-07-16 11:30] LABS: INTERNATIONAL NORMALIZED RATIO 1.21 (0.93-1.1); PROTHROMBIN TIME 12.8 Seconds (9.6-11.5)
[2021-07-16 11:32] LABS: ALANINE AMINOTRANSFERASE 54 U/L (12-78); ALKALINE PHOSPHATASE 61 U/L (45-117); BILIRUBIN,TOTAL 1.3 mg/dL (0.2-1.0); CREATININE 1.71 mg/dL (0.7-1.3); TOTAL PROTEIN 7.9 g/dL (6.4-8.2)
[~2021-07-18] VITALS: Ht 175.3 cm; Wt 90.9 kg
[~2021-07-18 09:55] MED LIST changes: +ASCO100018 PO; -ASCO10004 PO; +ATOR-2 PO; +CHLORHEXIDINE 15 ML UDC ONE; +CHLORHEXIDINE 15 ML UDC PO ONE; +CLOP75TA PO; +DULA1.5P INH; +ENOX100S5 SQ; +HEPARIN 1,000 UNITS/ML, 30ML ONE; +LACTATED RINGERS 1,000 ML IV SCH; +LIDOCAINE 1%, 20ML ONE; +LOSA25TA25 PO; -LOSA25TA5 PO; +LUTE20CA2 PO; +MIDO2.5T PO; +NITR0.4T28 SL; +OXYC5TAB98 PO; +Oxygen INH; +PROTAMINE SULFATE 10 MG/ML, 5ML ONE; +SIMV20TA19 PO; -SIMV20TA3 PO; +THROMBIN 20,000 UNIT VIAL TP ONE; +UBID100C41 PO; +WARF-36 PO; +Warfarin Low Dose Protocol PO
[2021-07-18] MEDS ORDERED: FENTANYL PF 250 MCG/5ML ONE (10:03)
[2021-07-18] MEDS ORDERED: DEXAMETHASONE 4 MG/ML, 1ML ONE ×2 (10:04→10:06)
[2021-07-18] MEDS ORDERED: PROPOFOL 10 MG/ML, 20ML ONE (10:06)
[2021-07-18 10:07] LABS: INTERNATIONAL NORMALIZED RATIO 1.04 (0.93-1.1); PROTHROMBIN TIME 11.1 Seconds (9.6-11.5)
== END 2021-07-18 23:59 | disposition home or self-care (01) ==
LOC: STAR 09:55 → EDSTATUS 10:30 → UNDODISIN 11:05 → STAR 23:59
PROVIDERS: ATTEND Surgery
DX: Z01.818 Encounter for other preprocedural examination (principal); Z20.822 Contact with and (suspected) exposure to COVID-19; J84.10 Pulmonary fibrosis, unspecified; M47.814 Spondylosis without myelopathy or radiculopathy, thoracic region; Z95.0 Presence of cardiac pacemaker
CPT/HCPCS: 36415; 71046; 80053; 82962; 85025; 85610; 85730; 86850; 86900; 93005; J1100; J1644; J2704; J3010; J7120; U0003; U0005; J2720

== ENCOUNTER 2021-07-19 09:42 | Inpatient (IN) | payer MEDICARE, OTHER ==
[~2021-07-19] VITALS: Ht 175.3 cm; Wt 92.5 kg
[~2021-07-19 09:42] MED LIST changes: -CHLORHEXIDINE 15 ML UDC ONE; -CHLORHEXIDINE 15 ML UDC PO ONE; -HEPARIN 1,000 UNITS/ML, 30ML ONE; -LACTATED RINGERS 1,000 ML IV SCH; -LIDOCAINE 1%, 20ML ONE; -PROTAMINE SULFATE 10 MG/ML, 5ML ONE; -THROMBIN 20,000 UNIT VIAL TP ONE
[2021-07-19] MEDS ORDERED: CHLORHEXIDINE 15 ML UDC PO ONE (10:30)
[2021-07-19] MEDS ORDERED: ASPIRIN 81 MG TABLET EC PO ONE (10:30)
[2021-07-19] MEDS ORDERED: LACTATED RINGERS 1,000 ML IV SCH (10:30)
[2021-07-19] MEDS ORDERED: CHLORHEXIDINE 15 ML UDC ONE (11:07)
[2021-07-19] MEDS ORDERED: LIDOCAINE-MPF 1%, 2ML ONE (11:16)
[2021-07-19] MEDS ORDERED: LIDOCAINE 1%, 20ML ONE (12:15)
[2021-07-19] MEDS ORDERED: HEPARIN 1,000 UNITS/ML, 10ML ONE (12:15)
[2021-07-19] MEDS ORDERED: THROMBIN 5,000 UNIT VIAL TP ONE (12:15)
[2021-07-19] MEDS ORDERED: PROTAMINE SULFATE 10 MG/ML, 5ML ONE (12:15)
[2021-07-19] MEDS ORDERED: BUPIVACAINE/PF 0.25% ONE (13:01)
[2021-07-19] MEDS ORDERED: EPINEPHRINE 1 MG/ML, 1ML ONE (13:02)
[2021-07-19] MEDS ORDERED: HEPARIN 1,000 UNITS/ML, 30ML ONE (13:02)
[2021-07-19] MEDS ORDERED: NITROGLYCERIN 0.4 MG BOTTLE (25 TABS) SL PRN (14:30)
[2021-07-19] MEDS ORDERED: ONDANSETRON 2MG/ML, 2ML IV PRN (14:30)
[2021-07-19] MEDS: INSULIN REGULAR 100 UNITS/ML, 3ML VIAL SQ-INSULIN SCH ×2 (14:30→21:00)
[2021-07-19] MEDS: MIDODRINE 2.5 MG TABLET PO SCH ×2 (16:00→21:20)
[2021-07-19] MEDS ORDERED: ENOXAPARIN 100 MG/ML SQ ONE (19:00)
[2021-07-19 19:09] VITALS: BP 147/81
[2021-07-19] MEDS: ATORVASTATIN 80 MG TABLET PO SCH (21:20)
[2021-07-19] MEDS: TAMSULOSIN 0.4 MG CAP.ER.24H PO SCH (21:20)
[2021-07-20 02:13] VITALS: BP 110/62
[2021-07-20] MEDS: INSULIN REGULAR 100 UNITS/ML, 3ML VIAL SQ-INSULIN SCH ×2 (03:00→08:49)
[2021-07-20 07:13] VITALS: BP 132/84
[2021-07-20] MEDS: CLOPIDOGREL 75 MG TABLET PO SCH ×2 (07:49→21:58)
[2021-07-20] MEDS: ASPIRIN 81 MG TABLET CHEW PO SCH (08:26)
[2021-07-20] MEDS: MIDODRINE 2.5 MG TABLET PO SCH ×3 (08:26→21:58)
[2021-07-20] MEDS: CYANOCOBALAMIN 1,000 MCG TABLET PO SCH (08:26)
[2021-07-20] MEDS: FINASTERIDE 5 MG TABLET PO SCH (08:27)
[2021-07-20] MEDS: FUROSEMIDE 40 MG TABLET PO SCH (08:27)
[2021-07-20] MEDS: INSULIN REGULAR, HUMAN 100 UNITS/ML, 3ML MEDIUM DOSE SS SQ-INSULIN SCH ×3 (10:30→22:38)
[2021-07-20] MEDS ORDERED: BUPIVACAINE/PF 0.25% ONE (13:05)
[2021-07-20] MEDS ORDERED: THROMBIN 20,000 UNIT VIAL TP ONE (13:05)
[2021-07-20] MEDS ORDERED: EPINEPHRINE 1 MG/ML, 1ML ONE (13:05)
[2021-07-20] MEDS ORDERED: PROTAMINE SULFATE 10 MG/ML, 5ML ONE (13:05)
[2021-07-20] MEDS ORDERED: HEPARIN 1,000 UNITS/ML, 10ML ONE (13:05)
[2021-07-20] MEDS ORDERED: LIDOCAINE/PF 1%, 30ML ONE (13:06)
[2021-07-20] MEDS ORDERED: CHLORHEXIDINE 15 ML UDC ONE (13:28)
[2021-07-20] MEDS ORDERED: SUGAMMADEX 200 MG/2 ML IVPush ONE (14:32)
[2021-07-20] MEDS ORDERED: FENTANYL PF 250 MCG/5ML ONE (14:35)
[2021-07-20] MEDS ORDERED: CEFAZOLIN 1,000 MG ONE (15:52)
[2021-07-20] MEDS ORDERED: SUCCINYLCHOLINE 20 MG/ML, 10ML ONE (15:52)
[2021-07-20] MEDS ORDERED: GLYCOPYRROLATE 0.2MG/1ML, 5ML ONE (15:52)
[2021-07-20] MEDS ORDERED: ONDANSETRON 2MG/ML, 2ML ONE (15:52)
[2021-07-20] MEDS ORDERED: ROCURONIUM 10MG/ML,5ML ONE (15:52)
[2021-07-20] MEDS ORDERED: DEXAMETHASONE 4 MG/ML, 1ML ONE (15:52)
[2021-07-20] MEDS ORDERED: PROPOFOL 10 MG/ML, 20ML ONE (15:52)
[2021-07-20] MEDS ORDERED: NEOSTIGMINE 1 MG/ML, 10ML ONE (15:52)
[2021-07-20 17:07] VITALS: BP 134/84
[2021-07-20] MEDS: ENOXAPARIN 100 MG/ML SQ SCH (18:39)
[2021-07-20 20:13] VITALS: BP 108/65
[2021-07-20] MEDS: ATORVASTATIN 80 MG TABLET PO SCH (21:58)
[2021-07-20] MEDS: TAMSULOSIN 0.4 MG CAP.ER.24H PO SCH (21:58)
[2021-07-21 02:01] VITALS: BP 93/54
[2021-07-21 04:50] VITALS: BP 104/71
[2021-07-21] MEDS: ENOXAPARIN 100 MG/ML SQ SCH (06:47)
[2021-07-21 07:40] VITALS: BP 110/78
[2021-07-21] MEDS: ASPIRIN 81 MG TABLET CHEW PO SCH (08:58)
[2021-07-21] MEDS: FUROSEMIDE 40 MG TABLET PO SCH (08:59)
[2021-07-21] MEDS: CYANOCOBALAMIN 1,000 MCG TABLET PO SCH (08:59)
[2021-07-21] MEDS: FINASTERIDE 5 MG TABLET PO SCH (08:59)
[2021-07-21] MEDS: MIDODRINE 2.5 MG TABLET PO SCH (08:59)
[2021-07-21] MEDS: INSULIN REGULAR, HUMAN 100 UNITS/ML, 3ML MEDIUM DOSE SS SQ-INSULIN SCH ×2 (09:05→11:35)
[2021-07-21 10:06] LABS: BASOPHILS % (AUTO) 1 % (0-1); EOSINOPHILS % (AUTO) 3 % (1-7); LYMPHOCYTES % (AUTO) 37 % (22-44); MEAN CORPUSCULAR HEMOGLOBIN 29.5 pg (27.5-34.5); MEAN CORPUSCULAR HGB CONC 33.5 g/dL (33.2-36.2); MONOCYTES % (AUTO) 9 % (2-9); NEUTROPHILS % (AUTO) 51 % (42-75); PLATELET COUNT 114 x10^3/uL (130-400); RED BLOOD COUNT 4.53 x10^6/uL (4.38-5.82); RED CELL DISTRIBUTION WIDTH 14.6 % (9.4-14.8)
[2021-07-21 10:16] LABS: ANION GAP 7 mmol/L (5-15); CALCIUM 9.7 mg/dL (8.5-10.1); CHLORIDE 107 mmol/L (98-107); CREATININE 1.66 mg/dL (0.7-1.3)
[2021-07-21 10:20] LABS: TROPONIN I 0.016 ng/mL (0.000-0.045)
[2021-07-21 13:00] VITALS: BP 129/80
[2021-07-21 14:50] VITALS: BP 110/71
== END 2021-07-21 15:34 | disposition home or self-care (01) | DRG 68 ==
LOC: ORIP 09:42 → 4NE 13:56
PROVIDERS: ADMIT Surgery; ATTEND Surgery
PROC: 03HB33Z Insertion of Infusion Device into Right Radial Artery, Percutaneous Approach (ICD-10-PCS; principal; 2021-07-20 13:30)
DX: I65.23 Occlusion and stenosis of bilateral carotid arteries (principal); I48.92 Unspecified atrial flutter; I13.0 Hypertensive heart and chronic kidney disease with heart failure and stage 1 through stage 4 chronic kidney disease, or unspecified chronic kidney disease; E78.5 Hyperlipidemia, unspecified; I25.10 Atherosclerotic heart disease of native coronary artery without angina pectoris; I25.5 Ischemic cardiomyopathy; I48.91 Unspecified atrial fibrillation; I50.9 Heart failure, unspecified; I95.89 Other hypotension; Z96.649 Presence of unspecified artificial hip joint; R09.89 Other specified symptoms and signs involving the circulatory and respiratory systems; Z53.9 Procedure and treatment not carried out, unspecified reason; N18.9 Chronic kidney disease, unspecified; E11.22 Type 2 diabetes mellitus with diabetic chronic kidney disease; Z86.73 Personal history of transient ischemic attack (TIA), and cerebral infarction without residual deficits; I25.2 Old myocardial infarction; Z95.1 Presence of aortocoronary bypass graft; Z95.810 Presence of automatic (implantable) cardiac defibrillator; Z88.5 Allergy status to narcotic agent; Z79.82 Long term (current) use of aspirin
CPT/HCPCS: 36415; 80048; 82962; 84484; 85025; 86850; 86900; 93005; G0378; J0171; J0690; J1100; J1644; J1650; J1815; J2405; J2704; J2710; J2720; J3010; J0330